=== PATIENT | male | born 1965 | race Caucasian/White ===

== ENCOUNTER 2016-08-01 18:19 | Emergency (ER) | payer BC ==
[2016-08-01 18:46] VITALS: BP 122/84
--- NOTE | 2016-08-01 18:55 | EDM.PDOC ---
ED HPI GENERAL MEDICAL PROBLEM - General Chief Complaint: Bite:Animal, Insect Stated Complaint: BITE LT HAND Time Seen by Provider: 08/01/16 18:24 Source of Information: Reports: Patient History Limitations: Reports: No Limitations - History of Present Illness INITIAL COMMENTS - FREE TEXT/NARRATIVE: Presents with a red lesion on his left thenar eminence. The patient states that he often gets little sweat blisters on his hand and itches them. Or, he may have gotten a bug bite and scratch it. No fever or constitutional symptoms left hand Pain Score (Numeric/FACES): 10 - Related Data Allergies Allergy/AdvReac Type Severity Reaction Status Date / Time venom-honey bee Allergy Anaphylactic Verified 08/01/16 18:43 [bee venom (honey bee)] Shock Home Meds: Home Meds EPINEPHrine [Epipen] 1 injection IM ASDIRECTED PRN 05/12/14 [History] Lisinopril/Hydrochlorothiazide [Lisinopril-Hctz 20-12.5 mg Tab] 1 tab PO BRK [History] Nitroglycerin 1 tab SL ASDIRECTED PRN 08/29/14 [History] Doxycycline Hyclate 1 cap PO DAILY #7 capsule 08/01/16 [Rx] Metoprolol Succinate [Toprol XL] 08/01/16 [History] Past Medical History Cardiovascular History: Reports: Hypertension, Other (See Below) Other Cardiovascular History: SVT Other Gastrointestinal History: inguinal hernia - Infectious Disease History Infectious Disease History: Reports: MRSA Social & Family History - Family History Family Medical History: Noncontributory - Tobacco Use Smoking Status *Q: Current Every Day Smoker Years of Tobacco use: 30 Packs/Tins Daily: 1.5 - Alcohol Use Days Per Week of Alcohol Use: 7 Number of Drinks Per Day: 3 Total Drinks Per Week: 21 - Recreational Drug Use Recreational Drug Use: No Drug Use in Last 12 Months: No ED ROS GENERAL - Review of Systems Review Of Systems: ROS reveals no pertinent complaints other than HPI. ED EXAM, ANIMAL BITE - Physical Exam Exam: See Below Exam Limited By: No Limitations General Appearance: Alert, No Apparent Distress Ears: Normal External Exam Nose: Normal Inspection Throat/Mouth: Normal Inspection Head: Atraumatic, Normocephalic Neck: Normal Inspection Respiratory/Chest: No Respiratory Distress, Lungs Clear, Normal Breath Sounds Cardiovascular: Normal Peripheral Pulses, Regular Rate, Rhythm, No Murmur GI/Abdominal: Soft Extremities: Other (Left thenar eminence dime-sized indurated, erythematous lesion with a scab in the middle. Mild pink around it. Full range of motion of all digits and wrist without hesitation or limitation. Strong radial pulses and CMS intact distally.) Neurological: Alert, Oriented Course - Vital Signs Last Recorded V/S: Last Vital Signs Temp 36.8 C 08/01/16 18:20 Pulse 103 H 08/01/16 18:20 Resp 18 08/01/16 18:20 BP 122/84 08/01/16 18:20 Pulse Ox 96 08/01/16 18:20 Departure - Departure Time of Disposition: 18:53 Disposition: Home, Self-Care 01 Condition: Good Clinical Impression: Boil - Discharge Information Referrals: PCP,None [Primary Care Provider] - Roberta Wolf [employer] TECHNICIAN [Emergency Midlevel Provider] - Forms: ED Department Discharge Additional Instructions: 1. Take antibiotics as directed 2. Warm Epsom salt soaks 2-3 times daily 3. Return promptly for fever or expanding redness
== END 2016-08-01 19:06 | disposition home or self-care (01) ==
LOC: MW.ED 18:19
DX: L02.522 Furuncle left hand (principal); F17.210 Nicotine dependence, cigarettes, uncomplicated; I10 Essential (primary) hypertension; Z79.899 Other long term (current) drug therapy; Z91.030 Bee allergy status
CPT/HCPCS: 99281; 99283

== ENCOUNTER 2018-06-19 09:57 | Emergency (ER) | payer BC ==
--- NOTE | 2018-06-19 10:22 | EDM.PDOC ---
ED HPI GENERAL MEDICAL PROBLEM - General Chief Complaint: Respiratory Problem Stated Complaint: TROUBLE BREATHING Time Seen by Provider: 06/19/18 10:11 Source of Information: Reports: Patient History Limitations: Reports: No Limitations - History of Present Illness INITIAL COMMENTS - FREE TEXT/NARRATIVE: HISTORY AND PHYSICAL: History of present illness: Patient is a 52-year-old male who presents to the ED today with concern of cough that is worsening over the past month. Patient states at times he gets into coughing fits which makes him feel short of breath. Patient states he does smoke 1/2 pack cigarettes for 30-40 years. Patient states he has had bouts of pneumonia in the past. He states he has an albuterol nebulizer and Symbicort inhaler at home that he has been using without relief of symptoms. Patient states he has a history of prior SVT status post ablation and hypertension. He states he follows with Roberta Wolf outpatient is currently doing sleep studies for concern of VEE. Patient states he's been coughing up clear/ yellowish mucus when he coughs. Patient states he is unable to take a deep breath without having coughing attack. Patient denies fever, chills, chest pain. Denies headache, neck stiff ness, change in vision, syncope, or near syncope. Denies nausea, vomiting, abdominal pain, diarrhea, constipation, or dysuria. Has not noted any blood in urine or stool. Patient has been eating and drinking appropriately. Review of systems: As per history of present illness and below otherwise all systems reviewed and negative. Past medical history: As per history of present illness and as reviewed below otherwise noncontributory. Surgical history: As per history of present illness and as reviewed below otherwise noncontributory. Social history: See social history for further information Family history: As per history of present illness and as reviewed below otherwise noncontributory. Physical exam: General: Patient is alert, oriented, and in no acute distress. Patient sitting comfortably on exam table. HEENT: Atraumatic, normocephalic, pupils equal and reactive bilaterally, negative for conjunctival pallor or scleral icterus, mucous membranes moist, TMs normal bilaterally, throat clear, neck supple, nontender, trachea midline. No drooling or trismus noted. No meningeal signs. No hot potato voice noted. Lungs: Exam of lungs is limited due to coughing. Patient unable to take a clear inspiration without cough. Breath sounds equal bilaterally, chest nontender. Wet cough elicited throughout exam. Heart: S1S2, regular rate and rhythm without overt murmur Abdomen: Obese, soft, nondistended, nontender. Negative for masses or hepatosplenomegaly. Negative for costovertebral tenderness. Pelvis: Stable nontender. Genitourinary: Deferred. Rectal: Deferred. Skin: Intact, warm, dry. No lesions or rashes noted. Extremities: Atraumatic, negative for cords or calf pain. Neurovascular unremarkable. Neuro: Awake, alert, oriented. Cranial nerves II through XII unremarkable. Cerebellum unremarkable. Motor and sensory unremarkable throughout. Exam nonfocal. Notes: Admission for observation was offered to patient but he declines at this time. Patient expresses resolution of symptoms with therapeutics given today in the ED. Although patient has never been formally diagnosed with COPD, with his smoking history and current symptoms, I will treat empirically for COPD exacerbation. Discussed this with patient and the importance of follow up with his primary care provider, Roberta Wolf. Voices understanding and is agreeable to plan of care. Denies any further questions or concerns at this time. Diagnostics: CBC, CMP, UA, CXR, EKG, Troponin, Ddimer, lactate, blood cultures x2 Therapeutics: Duoneb, solumedrol Prescription: Azithromycin, Prednisone, Duoneb Impression: Chronic bronchitis Plan: 1. Take medications as prescribed. Also continue your at-home inhalers as priorly prescribed to you. 2. Follow-up with your primary care provider as discussed. 3. Return to the ED as needed and as discussed. Definitive disposition and diagnosis as appropriate pending reevaluation and review of above. Mid-Sternal Pain Score (Numeric/FACES): 4 - Related Data Allergies Allergy/AdvReac Type Severity Reaction Status Date / Time cyclobenzaprine Allergy Itching Verified 06/19/18 10:08 [From Flexeril] venom-honey bee Allergy Anaphylactic Verified 08/01/16 18:43 [bee venom (honey bee)] Shock Home Meds: Home Meds EPINEPHrine [Epipen] 1 injection IM ASDIRECTED PRN 05/12/14 [History] Lisinopril/Hydrochlorothiazide [Lisinopril-Hctz 20-12.5 mg Tab] 1 tab PO BRK [History] Nitroglycerin 1 tab SL ASDIRECTED PRN 08/29/14 [History] Budesonide/Formoterol [Symbicort 160-4.5 MCG] 2 puff INH DAILY 06/19/18 [History ] Carisoprodol 350 mg PO ASDIRECTED 06/19/18 [History] Lisinopril [Prinivil] 10 mg PO BEDTIME 06/19/18 [History] traMADol HCl [Tramadol HCl] 50 mg PO ASDIRECTED 06/19/18 [History] Past Medical History Cardiovascular History: Reports: Hypertension, Other (See Below) Other Cardiovascular History: SVT Other Gastrointestinal History: inguinal hernia - Infectious Disease History Infectious Disease History: Reports: Chicken Pox, Measles, Mumps - Past Surgical History Cardiovascular Surgical History: Reports: Cardiac Ablation Social & Family History - Family History Family Medical History: Noncontributory - Tobacco Use Smoking Status *Q: Current Every Day Smoker Years of Tobacco use: 30 Packs/Tins Daily: 0.5 - Recreational Drug Use Recreational Drug Use: No ED ROS GENERAL - Review of Systems Review Of Systems: ROS reveals no pertinent complaints other than HPI. ED EXAM, GENERAL - Physical Exam Exam: See Below (See dictation) Course - Vital Signs Last Recorded V/S: Last Vital Signs Temp 36.9 C 06/19/18 10:02 Pulse 100 06/19/18 11:08 Resp 16 06/19/18 11:08 BP 132/86 06/19/18 11:08 Pulse Ox 92 L 06/19/18 11:08 - Orders/Labs/Meds Orders: Active Orders 24 hr Category Date Time Status EKG Documentation Completion [RC] STAT Care 06/19/18 10:20 Active RT Aerosol Therapy [RC] ASDIRECTED Care 06/19/18 10:14 Active CULTURE BLOOD [BC] Stat Lab 06/19/18 10:32 Received CULTURE BLOOD [BC] Stat Lab 06/19/18 11:23 Received Blood Culture x2 Reflex Set [OM.PC] Stat Oth 06/19/18 11:10 Ordered Labs: Laboratory Tests 06/19/18 06/19/18 06/19/18 Range/Units 10:27 10:27 10:27 WBC 14.31 H (4.0-11.0) K/uL RBC 4.64 (4.50-5.90) M/uL Hgb 15.5 (13.0-17.0) g/dL Hct 45.1 (38.0-50.0) % MCV 97.2 (80.0-98.0) fL MCH 33.4 H (27.0-32.0) pg MCHC 34.4 (31.0-37.0) g/dL RDW Std Deviation 46.9 (28.0-62.0) fl RDW Coeff of Ellie 13 (11.0-15.0) % Plt Count 301 (150-400) K/uL MPV 9.50 (7.40-12.00) fL Neut % (Auto) 74.1 (48.0-80.0) % Lymph % (Auto) 14.4 L (16.0-40.0) % [place] % (Auto) 9.8 (0.0-15.0) % Eos % (Auto) 1.4 (0.0-7.0) % Baso % (Auto) 0.3 (0.0-1.5) % Neut # (Auto) 10.6 H (1.4-5.7) K/uL Lymph # (Auto) 2.1 (0.6-2.4) K/uL [place] # (Auto) 1.4 H (0.0-0.8) K/uL Eos # (Auto) 0.2 (0.0-0.7) K/uL Baso # (Auto) 0.0 (0.0-0.1) K/uL Nucleated RBC % 0.0 /100WBC Nucleated RBCs # 0 K/uL D-Dimer, Quantitative 0.23 (0.0-0.50) mg/L FEU Lactate (0.20-2.00) mmol/L Sodium 132 L (136-148) mmol/L Potassium 4.2 (3.5-5.1) mmol/L Chloride 95 L (98-107) mmol/L Carbon Dioxide 28.6 (21.0-32.0) mmol/L BUN 16 (7.0-18.0) mg/dL Creatinine 0.8 (0.8-1.3) mg/dL Est Cr Clr Drug Dosing 106.88 mL/min Estimated GFR (MDRD) > 60.0 ml/min Glucose 97 (74-106) mg/dL Calcium 9.3 (8.5-10.1) mg/dL Total Bilirubin 0.4 (0.2-1.0) mg/dL AST 15 (15-37) IU/L ALT 32 (14-63) IU/L Alkaline Phosphatase 94 (46-116) U/L Troponin I < 0.050 (0.000-0.056) ng/mL Total Protein 7.5 (6.4-8.2) g/dL Albumin 3.8 (3.4-5.0) g/dL Globulin 3.7 (2.6-4.0) g/dL Albumin/Globulin Ratio 1.0 (0.9-1.6) Urine Color Urine Appearance Urine pH (5.0-8.0) Ur Specific [place] (1.001-1.035) Urine Protein (NEGATIVE) mg/dL Urine Glucose (UA) (NEGATIVE) mg/dL Urine Ketones (NEGATIVE) mg/dL Urine Occult Blood (NEGATIVE) Urine Nitrite (NEGATIVE) Urine Bilirubin (NEGATIVE) Urine Urobilinogen (<2.0) EU/dL Ur Leukocyte Esterase (NEGATIVE) 06/19/18 06/19/18 Range/Units 10:39 11:23 WBC (4.0-11.0) K/uL RBC (4.50-5.90) M/uL Hgb (13.0-17.0) g/dL Hct (38.0-50.0) % MCV (80.0-98.0) fL MCH (27.0-32.0) pg MCHC (31.0-37.0) g/dL RDW Std Deviation (28.0-62.0) fl RDW Coeff of Ellie (11.0-15.0) % Plt Count (150-400) K/uL MPV (7.40-12.00) fL Neut % (Auto) (48.0-80.0) % Lymph % (Auto) (16.0-40.0) % [place] % (Auto) (0.0-15.0) % Eos % (Auto) (0.0-7.0) % Baso % (Auto) (0.0-1.5) % Neut # (Auto) (1.4-5.7) K/uL Lymph # (Auto) (0.6-2.4) K/uL [place] # (Auto) (0.0-0.8) K/uL Eos # (Auto) (0.0-0.7) K/uL Baso # (Auto) (0.0-0.1) K/uL Nucleated RBC % /100WBC Nucleated RBCs # K/uL D-Dimer, Quantitative (0.0-0.50) mg/L FEU Lactate 1.1 (0.20-2.00) mmol/L Sodium (136-148) mmol/L Potassium (3.5-5.1) mmol/L Chloride (98-107) mmol/L Carbon Dioxide (21.0-32.0) mmol/L BUN (7.0-18.0) mg/dL Creatinine (0.8-1.3) mg/dL Est Cr Clr Drug Dosing mL/min Estimated GFR (MDRD) ml/min Glucose (74-106) mg/dL Calcium (8.5-10.1) mg/dL Total Bilirubin (0.2-1.0) mg/dL AST (15-37) IU/L ALT (14-63) IU/L Alkaline Phosphatase (46-116) U/L Troponin I (0.000-0.056) ng/mL Total Protein (6.4-8.2) g/dL Albumin (3.4-5.0) g/dL Globulin (2.6-4.0) g/dL Albumin/Globulin Ratio (0.9-1.6) Urine Color YELLOW Urine Appearance CLEAR Urine pH 6.5 (5.0-8.0) Ur Specific [place] 1.015 (1.001-1.035) Urine Protein NEGATIVE (NEGATIVE) mg/dL Urine Glucose (UA) NEGATIVE (NEGATIVE) mg/dL Urine Ketones NEGATIVE (NEGATIVE) mg/dL Urine Occult Blood NEGATIVE (NEGATIVE) Urine Nitrite NEGATIVE (NEGATIVE) Urine Bilirubin NEGATIVE (NEGATIVE) Urine Urobilinogen 0.2 (<2.0) EU/dL Ur Leukocyte Esterase NEGATIVE (NEGATIVE) Meds: Medications Discontinued Medications Generic Name Dose Route Start Last Admin Trade Name Freq PRN Reason Stop Dose Admin Albuterol/Ipratropium 3 ml 06/19/18 10:14 06/19/18 10:32 Duoneb 3.0-0.5 Mg/3 Ml NEB 06/19/18 10:15 3 ml ONETIME ONE Administration Methylprednisolone Sodium Succinate 125 mg 06/19/18 10:20 06/19/18 10:26 Solu-Medrol IM 06/19/18 10:21 125 mg ONETIME ONE Administration Departure - Departure Time of Disposition: 11:36 Disposition: Home, Self-Care 01 Clinical Impression: Chronic bronchitis Qualifiers: Chronic bronchitis type: mixed simple and mucopurulent Qualified Code(s): J41.8 - Mixed simple and mucopurulent chronic bronchitis - Discharge Information Instructions: Chronic Bronchitis Referrals: PCP,Unknown [Primary Care Provider] - Forms: ED Department Discharge Additional Instructions: The following information is given to patients seen in the emergency department who are being discharged to home. This information is to outline your options for follow-up care. We provide all patients seen in our emergency department with a follow-up referral. The need for follow-up, as well as the timing and circumstances, are variable depending upon the specifics of your emergency department visit. If you don't have a primary care physician on staff, we will provide you with a referral. We always advise you to contact your personal physician following an emergency department visit to inform them of the circumstance of the visit and for follow-up with them and/or the need for any referrals to a consulting specialist. The emergency department will also refer you to a specialist when appropriate. This referral assures that you have the opportunity for follow-up care with a specialist. All of these measure are taken in an effort to provide you with optimal care, which includes your follow-up. Under all circumstances we always encourage you to contact your private physician who remains a resource for coordinating your care. When calling for follow-up care, please make the office aware that this follow-up is from your recent emergency room visit. If for any reason you are refused follow-up, please contact the [facility] Emergency Department at and asked to speak to the emergency department charge nurse. [facility] [address] [place] [id number] [address] 1. Take medications as prescribed. Also continue your at-home inhalers as priorly prescribed to you. 2. Follow-up with your primary care provider as discussed. 3. Return to the ED as needed and as discussed. - My Orders Last 24 Hours: My Active Orders 06/19/18 10:14 RT Aerosol Therapy [RC] ASDIRECTED 06/19/18 10:20 EKG Documentation Completion [RC] STAT 06/19/18 10:32 CULTURE BLOOD [BC] Stat 06/19/18 11:10 Blood Culture x2 Reflex Set [OM.PC] Stat 06/19/18 11:23 CULTURE BLOOD [BC] Stat - Assessment/Plan Last 24 Hours: My Active Orders 06/19/18 10:14 RT Aerosol Therapy [RC] ASDIRECTED 06/19/18 10:20 EKG Documentation Completion [RC] STAT 06/19/18 10:32 CULTURE BLOOD [BC] Stat 06/19/18 11:10 Blood Culture x2 Reflex Set [OM.PC] Stat 06/19/18 11:23 CULTURE BLOOD [BC] Stat
[2018-06-19] MEDS: methylPREDNISolone Sodium Succinate 125 MG/2 ML SDV IM ONE (10:26)
[2018-06-19] MEDS: Albuterol/Ipratropium 3.0-0.5 MG/3 ML Neb Soln NEB ONE (10:32)
[2018-06-19 10:59] LABS: CHLORIDE,CL 95 mmol/L (98-107); SODIUM,NA 132 mmol/L (136-148)
--- NOTE | 2018-06-19 11:17 | CR ---
EXAMINATION: Two-view chest (PA and Lateral views). HISTORY: Shortness of breath. FINDINGS: The trachea is midline. The cardiomediastinal silhouette is within normal limits. No pulmonary infiltrates, effusions or pneumothorax. Osseous structures appear unremarkable. Old right-sided rib fractures. IMPRESSION: No acute cardiopulmonary process.
[2018-06-19 11:53] VITALS: BP 128/73
== END 2018-06-19 11:53 | disposition home or self-care (01) ==
LOC: MW.ED 09:57
DX: J41.8 Mixed simple and mucopurulent chronic bronchitis (principal); F17.210 Nicotine dependence, cigarettes, uncomplicated; Z88.8 Allergy status to other drugs, medicaments and biological substances
CPT/HCPCS: 36415; 71046; 80053; 81003; 83605; 84484; 85025; 85379; 87040; 93005; 94640; 96372; 99284; J2930; J7620-GY

== ENCOUNTER 2019-09-04 02:07 | Emergency (ER) | payer BC ==
[2019-09-04] MEDS ORDERED: Albuterol/Ipratropium 3.0-0.5 MG/3 ML Neb Soln NEB ONE (02:27)
[2019-09-04] MEDS ORDERED: Sodium Chloride 0.9% 10 ML Syringe FLUSH PRN (02:28)
[2019-09-04] MEDS ORDERED: Sodium Chloride 0.9% 2.5 ML Syringe FLUSH PRN ×2 (02:28)
[2019-09-04] MEDS ORDERED: Dexamethasone 10 MG/ML SDV IVPUSH ONE (02:28)
--- NOTE | 2019-09-04 02:33 | EDM.PDOC ---
ED HPI GENERAL MEDICAL PROBLEM - General Chief Complaint: Respiratory Problem Stated Complaint: CHEST PAIN Time Seen by Provider: 09/04/19 02:20 - History of Present Illness INITIAL COMMENTS - FREE TEXT/NARRATIVE: History of present illness: Patient presents with shortness of breath he states he was awakened in the night feeling like he could not catch his breath or get the air in when he tried to breathe he is a smoker has a previous history of some tachydysrhythmias he denies any cough fever or chills no sore throat he has had some runny nose and congestion for the past 10 days or so he denies any chest pain no leg pain or leg swelling nothing seems to make it better or worse daily smoker. Review of systems: As per history of present illness and below otherwise all systems reviewed and negative. Past medical history: As per history of present illness and as reviewed below otherwise noncontributory. Surgical history: As per history of present illness and as reviewed below otherwise noncontributory. Social history: No reported history of drug or alcohol abuse. Family history: As per history of present illness and as reviewed below otherwise noncontributory. Physical exam: HEENT: Atraumatic, normocephalic, pupils reactive, negative for conjunctival pallor or scleral icterus, mucous membranes moist, throat clear, neck supple, nontender, trachea midline. Lungs: Added rhonchi and wheezing, breath sounds equal bilaterally, chest nontender. Heart: S1S2, regular, negative for clicks, rubs, or JVD. Abdomen: Soft, nondistended, nontender. Negative for masses or hepatosplenomegaly. Negative for costovertebral tenderness. Pelvis: Stable nontender. Genitourinary: Deferred. Rectal: Deferred. Extremities: Atraumatic, negative for cords or calf pain. Neurovascular unremarkable. Neuro: Awake, alert, oriented. Cranial nerves II through XII unremarkable. Cerebellum unremarkable. Motor and sensory unremarkable throughout. Exam nonfocal. Diagnostics: [] Therapeutics: [] Impression: COPD exacerbation [] Plan: Nebs steroids cardiac work-up x-ray reassess [] Definitive disposition and diagnosis as appropriate pending reevaluation and review of above. - Related Data Allergies Allergy/AdvReac Type Severity Reaction Status Date / Time cyclobenzaprine Allergy Itching Verified 09/04/19 02:17 [From Flexeril] venom-honey bee Allergy Anaphylactic Verified 09/04/19 02:17 [bee venom (honey bee)] Shock Home Meds: Home Meds EPINEPHrine [Epipen] 1 injection IM ASDIRECTED PRN 05/12/14 [History] Lisinopril/Hydrochlorothiazide [Lisinopril-Hctz 20-12.5 mg Tab] 1 tab PO BRK 05/12/14 [History] Nitroglycerin 1 tab SL ASDIRECTED PRN 08/29/14 [History] Budesonide/Formoterol [Symbicort 160-4.5 MCG] 2 puff INH DAILY 06/19/18 [History] carisoprodoL [Carisoprodol] 350 mg PO ASDIRECTED 06/19/18 [History] lisinopriL [Prinivil] 10 mg PO BEDTIME 06/19/18 [History] traMADol HCl [Tramadol HCl] 50 mg PO ASDIRECTED 06/19/18 [History] Past Medical History Cardiovascular History: Reports: Hypertension, Other (See Below) Other Cardiovascular History: SVT Other Gastrointestinal History: inguinal hernia - Infectious Disease History Infectious Disease History: Reports: Chicken Pox, Measles, Mumps - Past Surgical History Cardiovascular Surgical History: Reports: Cardiac Ablation Social & Family History - Family History Family Medical History: Noncontributory ED ROS GENERAL - Review of Systems Review Of Systems: See Below ED EXAM, GENERAL - Physical Exam Exam: See Below EKG INTERPRETATION EKG Interpretation Comments: EKG is a normal sinus rhythm rate of 97 bpm right axis no claudia ischemia read and interpreted by me Course - Vital Signs Text/Narrative:: The patient was reexamined at 3:35 AM his breath sounds have improved his breathing has improved his sats are being maintained at 95% on room air he does not have an albuterol inhaler at home I will start him on an albuterol inhaler which we will dispense for him to take home tonight. Labs and x-ray were reviewed the chest x-ray is a portable 1 view chest with mild stable cardiomegaly no acute cardiopulmonary pathology evident. This was read interpreted by me Be discharged home with a COPD exacerbation he has instructed for 5 minutes to stop smoking. Last Recorded V/S: Last Vital Signs Temp 36.4 C 09/04/19 02:10 Pulse 95 09/04/19 02:10 Resp 18 09/04/19 02:10 BP 147/87 H 09/04/19 02:10 Pulse Ox 95 09/04/19 02:10 - Orders/Labs/Meds Orders: Active Orders 24 hr Category Date Time Status EKG Documentation Completion [RC] STAT Care 09/04/19 02:28 Active RT Aerosol Therapy [RC] ASDIRECTED Care 09/04/19 02:27 Active Chest 1V Frontal [CR] Stat Exams 09/04/19 02:28 Taken Sodium Chloride 0.9% [Saline Flush] Med 09/04/19 02:28 Active 10 ml FLUSH ASDIRECTED PRN Saline Lock Insert [OM.PC] Stat Oth 09/04/19 02:28 Ordered Medication Orders Sodium Chloride (Saline Flush) 10 ml FLUSH ASDIRECTED PRN PRN Reason: Keep Vein Open Last Admin: 09/04/19 02:34 Dose: 10 ml Documented by: NENA Labs: Laboratory Tests 09/04/19 09/04/19 09/04/19 Range/Units 02:10 02:10 02:10 WBC 9.99 (4.0-11.0) K/uL RBC 4.63 (4.50-5.90) M/uL Hgb 15.3 (13.0-17.0) g/dL Hct 45.6 (38.0-50.0) % MCV 98.5 H (80.0-98.0) fL MCH 33.0 H (27.0-32.0) pg MCHC 33.6 (31.0-37.0) g/dL RDW Std Deviation 47.2 (28.0-62.0) fl RDW Coeff of Ellie 13 (11.0-15.0) % Plt Count 329 (150-400) K/uL MPV 9.50 (7.40-12.00) fL Neut % (Auto) 53.4 (48.0-80.0) % Lymph % (Auto) 34.6 (16.0-40.0) % [place] % (Auto) 8.0 (0.0-15.0) % Eos % (Auto) 3.4 (0.0-7.0) % Baso % (Auto) 0.6 (0.0-1.5) % Neut # (Auto) 5.3 (1.4-5.7) K/uL Lymph # (Auto) 3.5 H (0.6-2.4) K/uL [place] # (Auto) 0.8 (0.0-0.8) K/uL Eos # (Auto) 0.3 (0.0-0.7) K/uL Baso # (Auto) 0.1 (0.0-0.1) K/uL Nucleated RBC % 0.0 /100WBC Nucleated RBCs # 0 K/uL Sodium 140 (136-148) mmol/L Potassium 3.6 (3.5-5.1) mmol/L Chloride 102 (98-107) mmol/L Carbon Dioxide 25.9 (21.0-32.0) mmol/L BUN 20 H (7.0-18.0) mg/dL Creatinine 0.9 (0.8-1.3) mg/dL Est Cr Clr Drug Dosing 92.89 mL/min Estimated GFR (MDRD) > 60.0 ml/min Glucose 121 H (74-106) mg/dL Calcium 8.4 L (8.5-10.1) mg/dL Total Bilirubin 0.2 (0.2-1.0) mg/dL AST 16 (15-37) IU/L ALT 33 (14-63) IU/L Alkaline Phosphatase 107 (46-116) U/L Troponin I < 0.050 (0.000-0.056) ng/mL B-Natriuretic Peptide 2 (<100) PG/ML Total Protein 7.3 (6.4-8.2) g/dL Albumin 3.4 (3.4-5.0) g/dL Globulin 3.9 (2.6-4.0) g/dL Albumin/Globulin Ratio 0.9 (0.9-1.6) Meds: Medications Generic Name Dose Route Start Last Admin Trade Name Freq PRN Reason Stop Dose Admin Sodium Chloride 10 ml 09/04/19 02:28 09/04/19 02:34 Saline Flush FLUSH 10 ml ASDIRECTED PRN Administration Keep Vein Open Discontinued Medications Generic Name Dose Route Start Last Admin Trade Name Freq PRN Reason Stop Dose Admin Albuterol/Ipratropium 3 ml 09/04/19 02:27 09/04/19 02:33 Duoneb 3.0-0.5 Mg/3 Ml NEB 09/04/19 02:28 3 ml ONETIME ONE Administration Dexamethasone 10 mg 09/04/19 02:28 09/04/19 02:33 Dexamethasone IVPUSH 09/04/19 02:29 10 mg ONETIME ONE Administration Sodium Chloride 2.5 ml 09/04/19 02:28 Saline Flush FLUSH ASDIRECTED PRN Keep Vein Open Sodium Chloride 2.5 ml 09/04/19 02:28 Saline Flush FLUSH ASDIRECTED PRN Keep Vein Open Departure - Departure Time of Disposition: 03:37 Disposition: Home, Self-Care 01 Condition: Good Clinical Impression: COPD exacerbation, Tobacco abuse - Discharge Information *PRESCRIPTION DRUG MONITORING PROGRAM REVIEWED*: Not Applicable *COPY OF PRESCRIPTION DRUG MONITORING REPORT IN PATIENT MEGGAN: Not Applicable Instructions: Steps to Quit Smoking, [id number], Chronic Obstructive Pulmonary Disease, [id number] Forms: ED Department Discharge Additional Instructions: The following information is given to patients seen in the emergency department who are being discharged to home. This information is to outline your options for follow-up care. We provide all patients seen in our emergency department with a follow-up referral. The need for follow-up, as well as the timing and circumstances, are variable depending upon the specifics of your emergency department visit. If you don't have a primary care physician on staff, we will provide you with a referral. We always advise you to contact your personal physician following an e mergency department visit to inform them of the circumstance of the visit and for follow-up with them and/or the need for any referrals to a consulting specialist. The emergency department will also refer you to a specialist when appropriate. This referral assures that you have the opportunity for follow-up care with a specialist. All of these measure are taken in an effort to provide you with op timal care, which includes your follow-up. Under all circumstances we always encourage you to contact your private physician who remains a resource for coordinating your care. When calling for follow-up care, please make the office aware that this follow-up is from your recent emergency room visit. If for any reason you are refused follow-up, please contact the [facility] Emergency Department at and asked to speak to the emergency department charge nurse. [facility] [address] [place] [address] [facility] [address] [place] [id number] Sepsis Event Note (ED) - Evaluation Sepsis Screening Result: No Definite Risk - Focused Exam Vital Signs: Vital Signs Temp Pulse Resp BP Pulse Ox 09/04/19 02:10 36.4 C 95 18 147/87 H 95 - My Orders Last 24 Hours: My Active Orders 09/04/19 02:27 RT Aerosol Therapy [RC] ASDIRECTED 09/04/19 02:28 EKG Documentation Completion [RC] STAT Chest 1V Frontal [CR] Stat Sodium Chloride 0.9% [Saline Flush] 10 ml FLUSH ASDIRECTED PRN Saline Lock Insert [OM.PC] Stat - Assessment/Plan Last 24 Hours: My Active Orders 09/04/19 02:27 RT Aerosol Therapy [RC] ASDIRECTED 09/04/19 02:28 EKG Documentation Completion [RC] STAT Chest 1V Frontal [CR] Stat Sodium Chloride 0.9% [Saline Flush] 10 ml FLUSH ASDIRECTED PRN Saline Lock Insert [OM.PC] Stat
[2019-09-04 02:51] LABS: BLOOD UREA NITROGEN,BUN 20 mg/dL (7.0-18.0); CARBON DIOXIDE,CO2 25.9 mmol/L (21.0-32.0); CHLORIDE,CL 102 mmol/L (98-107); GLUCOSE RANDOM 121 mg/dL (74-106); POTASSIUM,K 3.6 mmol/L (3.5-5.1); SODIUM,NA 140 mmol/L (136-148)
[2019-09-04] MEDS ORDERED: Albuterol 8 GM Inhaler INH ONE (03:39)
--- NOTE | 2019-09-04 03:44 | CR ---
HISTORY: Shortness of breath COMPARISON: Chest two views from 06/19/2018 FINDINGS: A portable erect AP view of the chest was obtained at 0305 hours. The lungs remain clear. No focal or diffuse infiltrates are present. The heart has increased in size and is now top normal in size. The mediastinum is normal in appearance. The osseous structures are normal in appearance for the patient`s age. IMPRESSION: Increase in heart size, now top normal. Otherwise normal portable chest single view. Dictated by Joseph Alcala MD @ Sep 04 2019 3:39AM Signed by Dr. Joseph Alcala @ Sep 04 2019 3:42AM
[2019-09-04 04:28] VITALS: BP 129/73; PULSE 88
== END 2019-09-04 04:00 | disposition home or self-care (01) ==
LOC: MW.ED 02:07
DX: J44.1 Chronic obstructive pulmonary disease with (acute) exacerbation (principal); Z72.0 Tobacco use; I10 Essential (primary) hypertension; Z91.030 Bee allergy status; Z88.8 Allergy status to other drugs, medicaments and biological substances; Z79.899 Other long term (current) drug therapy
CPT/HCPCS: 36415; 71045; 80053; 83880; 84484; 85025; 93005; 96374; 99285; A9270; J1100; 99283; J7620-GY

== ENCOUNTER 2024-02-17 09:48 | Emergency (ER) | payer BC ==
[2024-02-17] MEDS ORDERED: Sodium Chloride 0.9% 10 ML Syringe FLUSH PRN (10:23)
[2024-02-17] MEDS ORDERED: Sodium Chloride 0.9% 2.5 ML Syringe FLUSH PRN (10:23)
[2024-02-17] MEDS: Sodium Chloride 0.9% 1,000 ML IV ONE (10:32)
[2024-02-17] MEDS: Lidocaine 4% 1 each Patch TOP STA (10:32)
[2024-02-17] MEDS: Aspirin 81 MG Tab.Chew PO ONE (10:32)
[2024-02-17] MEDS: Cyclobenzaprine 10 MG Tab PO ONE (10:33)
[2024-02-17 10:38] LABS: APPEARANCE,URINE CLEAR; BILIRUBIN,URINE NEGATIVE (NEGATIVE); COLOR,URINE YELLOW; GLUCOSE,URINE NEGATIVE (NEGATIVE); KETONES,URINE NEGATIVE (NEGATIVE); LEUKOCYTE ESTERASE,URINE NEGATIVE (NEGATIVE); NITRITE,URINE NEGATIVE (NEGATIVE); OCCULT BLOOD,URINE NEGATIVE (NEGATIVE); PH,URINE 7.5 (5.0-8.0); PROTEIN,URINE NEGATIVE (NEGATIVE); UROBILINOGEN,URINE 0.2 EU/dL (<2.0)
[2024-02-17 10:46] LABS: BASOPHILS ABSOLUTE AUTO 0.08 K/uL (0.00-0.20); BASOPHILS PERCENT AUTO 0.7 % (0.0-1.0); EOSINOPHILS ABSOLUTE AUTO 0.18 K/uL (0.00-0.45); EOSINOPHILS PERCENT AUTO 1.7 % (0.0-6.0); HEMATOCRIT 44.4 % (42.0-52.0); HEMOGLOBIN 15.5 g/dL (14.0-18.0); IMMATURE GRAN ABSOLUTE AUTO 0.03 K/uL (0.00-0.05); IMMATURE GRAN PERCENT AUTO 0.3 % (0.0-0.4); LYMPHOCYTES ABSOLUTE AUTO 2.45 K/uL (1.00-4.80); LYMPHOCYTES PERCENT AUTO 22.6 % (24.0-44.0); MEAN CORPUSCULAR HEMOGLOBIN 32.6 pg (28.0-32.0); MEAN CORPUSCULAR HGB CONC 34.9 g/dL (32.0-36.0); MEAN CORPUSCULAR VOLUME 93.3 fL (83.0-99.0); MONOCYTES ABSOLUTE AUTO 0.78 K/uL (0.00-0.80); MONOCYTES PERCENT AUTO 7.2 % (0.0-8.0); NEUTROPHILS ABSOLUTE AUTO 7.33 K/uL (1.80-7.70); NEUTROPHILS PERCENT AUTO 67.5 % (41.0-71.0); PLATELET COUNT,PLT 287 K/uL (150-400); RED BLOOD CELL COUNT 4.76 M/uL (4.52-5.90); WHITE BLOOD CELL COUNT,WBC 10.85 K/uL (3.9-11.3)
[2024-02-17] MEDS: Methocarbamol 750 MG Tab PO ONE (10:46)
[2024-02-17 11:02] LABS: A/G RATIO 1.2 (0.9-1.6); ALBUMIN 4.1 g/dL (3.4-5.0); BILIRUBIN TOTAL 0.4 mg/dL (0.2-1.0); CALCIUM 8.9 mg/dL (8.5-10.1); CARBON DIOXIDE,CO2 30.6 mmol/L (21.0-32.0); CREATININE 0.8 mg/dL (0.8-1.3); EST CRCL DRUG DOSING (CG) 99.75 mL/min; MAGNESIUM 1.8 mg/dL (1.8-2.4); POTASSIUM,K 4.3 mmol/L (3.5-5.1); PROTEIN TOTAL,TP 7.5 g/dL (6.4-8.2)
[2024-02-17 11:51] VITALS: BP 139/80
[2024-02-17 12:31] VITALS: PULSE 70
== END 2024-02-17 12:31 | disposition home or self-care (01) ==
LOC: MW.ED 09:48
DX: M79.602 Pain in left arm (principal); M25.512 Pain in left shoulder; I10 Essential (primary) hypertension; J44.9 Chronic obstructive pulmonary disease, unspecified; E11.9 Type 2 diabetes mellitus without complications; F17.210 Nicotine dependence, cigarettes, uncomplicated; Z88.8 Allergy status to other drugs, medicaments and biological substances; Z91.030 Bee allergy status; Z79.84 Long term (current) use of oral hypoglycemic drugs; Z79.899 Other long term (current) drug therapy; Z75.8 Other problems related to medical facilities and other health care
CPT/HCPCS: 36415; 71046; 80053; 81003; 83690; 83735; 84484; 85025; 85379; 87428; 93005; 96360; 99284; A9270; J7030